=== PATIENT | female | born 1970 | race Asian ===

== ENCOUNTER 2018-08-19 08:00 | Day surgery (SDC) | payer OTHER ==
[2018-08-19] MEDS ORDERED: LIDOCAINE 4% SOLUTION 50 ML BTL (09:08)
[2018-08-19] MEDS ORDERED: MIDAZOLAM 1 MG/ML 2 ML INJ ×2 (09:58)
[2018-08-19] MEDS ORDERED: FENTAnyl 50 MCG/ML VIAL (09:58)
== END 2018-08-19 11:43 | disposition home or self-care (01) ==
LOC: GIL 08:00
DX: R19.5 Other fecal abnormalities (principal)
CPT/HCPCS: 45378; 84703; 88305